=== PATIENT | male | born 1990 | race Caucasian/White ===

== ENCOUNTER 2019-09-16 11:40 | Emergency (ER) | payer SELFPAY ==
[2019-09-16] MEDS ORDERED: IBUPROFEN 400 MG TAB ONE (12:16)
[2019-09-16] MEDS ORDERED: IBUPROFEN 200 MG TAB PO ONE (12:16)
--- NOTE | 2019-09-16 12:24 | ER ---
Nurse's Notes [facility] Name: Carmelo Ruiz Age: 29 yrs Sex: Male : 1990 Arrival Date: 09/16/2019 Time: 11:42 Bed 20 Private MD: Diagnosis: Pain in right shoulder Presentation: 09/16 11:44 Presenting complaint: Left shoulder pain after lifting heavy materials at work 3 weeks hb ago. Seen by company doctor, told he has possible rotator cuff tear, unable to get insurance approval for MRI. Transition of care: patient was not received from another setting of care. Onset of symptoms was August 26, 2019. Risk Assessment: Do you want to hurt yourself or someone else? Patient reports no desire to harm self or others. Initial Sepsis Screen: Does the patient meet any 2 criteria? No. Patient's initial sepsis screen is negative. Does the patient have a suspected source of infection? No. Patient's initial sepsis screen is negative. Care prior to arrival: None. 11:44 Method Of Arrival: Ambulatory hb 11:44 Acuity: HANSEL 4 hb Historical: - Allergies: 11:46 No Known Allergies; hb - Home Meds: 11:46 None [Active]; hb - PMHx: 11:46 None; hb - PSHx: 11:46 Tonsillectomy; hb - Immunization history:: Adult Immunizations up to date. - Social history:: Smoking status: Patient/guardian denies using tobacco. - Ebola Screening: : No symptoms or risks identified at this time. - Family history:: not pertinent. Screenin:00 Abuse screen: Denies threats or abuse. Denies injuries from another. Nutritional jl7 screening: No deficits noted. Tuberculosis screening: No symptoms or risk factors identified. Fall Risk None identified. Assessment: 12:00 General: Appears in no apparent distress. uncomfortable, Behavior is cooperative. Pain: jl7 Complains of pain in right shoulder. Neuro: Level of Consciousness is awake, alert, obeys commands. Cardiovascular: Patient's skin is warm and dry. Respiratory: Airway is patent Respiratory effort is even, unlabored, Respiratory pattern is regular, symmetrical. Derm: Skin is pink, warm \\T\\ dry. Musculoskeletal: Swelling absent. 12:35 Reassessment: pt refused medication and sling, states "I just need an MRI so I can find jl7 out what is going on with my shoulder. It hurts and my company want send information so I can get an MRI." ERD notified and at bedside. MRI order wrote for outpatient. Pt left prior to discharge instructions and MRI order. Vital Signs: 11:46 BP 134 / 79; Pulse 102; Resp 16; Temp 97.3; Pulse Ox 100% on R/A; Weight 94.8 kg; hb Height 6 ft. (182.88 cm); Pain 7/10; 11:46 Body Mass Index 28.35 (94.80 kg, 182.88 cm) hb ED Course: 11:42 Patient arrived in ED. rg4 11:46 Triage completed. 11:46 Arm band placed on. 11:48 Branden Wong MD is Attending Physician. [facility] 11:59 Rosenda Geronimo, RN is Primary Nurse. jl7 12:00 Patient has correct armband on for positive identification. Bed in low position. Call jl7 light in reach. Side rails up X 1. 12:36 No provider procedures requiring assistance completed. IV discontinued. jl7 Administered Medications: 12:31 Not Given (Patient Refused): Motrin 600 mg PO once jl7 Outcome: 12:24 Discharge ordered by . [facility] 12:36 Eloped from patient exam room, after seeing physician Time discovered patient gone: jl7 September 16, 2019 at 12:34 12:37 Patient left the ED. jl7 Signatures: Branden Wong MD MD cha Baxter, Heather, RN RN Susan Vickers 4 Rosenda Geronimo, MARLO RN jl7
--- NOTE | 2019-09-16 12:25 | EDPHYS ---
Physician Documentation [facility] Name: Carmelo Ruiz Age: 29 yrs Sex: Male : 1990 Arrival Date: 09/16/2019 Time: 11:42 Bed 20 Private MD: ED Physician Branden Wong HPI: 09/16 12:09 This 29 yrs old Male presents to ER via Ambulatory with complaints of [place] Shoulder Pain. 12:09 The patient or guardian complains of decreased range of motion, pain. right shoulder. [place] Context: The patient experiences decreased range of motion. Onset: The symptoms/episode began/occurred just prior to arrival. Modifying factors: the symptoms are alleviated by ice, remaining still. Associated signs and symptoms: The patient has no apparent associated signs or symptoms. Severity of symptoms: At their worst the symptoms were moderate, in the emergency department the symptoms are unchanged. The patient has not experienced similar symptoms in the past. Historical: - Allergies: 11:46 No Known Allergies; hb - Home Meds: 11:46 None [Active]; hb - PMHx: 11:46 None; hb - PSHx: 11:46 Tonsillectomy; hb - Immunization history:: Adult Immunizations up to date. - Social history:: Smoking status: Patient/guardian denies using tobacco. - Ebola Screening: : No symptoms or risks identified at this time. - Family history:: not pertinent. ROS: 12:09 Constitutional: Negative for fever, chills, and weight loss, Eyes: Negative for injury, [place] pain, redness, and discharge, ENT: Negative for injury, pain, and discharge, Neck: Negative for injury, pain, and swelling, Cardiovascular: Negative for chest pain, palpitations, and edema, Respiratory: Negative for shortness of breath, cough, wheezing, and pleuritic chest pain, Abdomen/GI: Negative for abdominal pain, nausea, vomiting, diarrhea, and constipation, Back: Negative for injury and pain, : Negative for injury, bleeding, discharge, and swelling, Skin: Negative for injury, rash, and discoloration, Neuro: Negative for headache, weakness, numbness, tingling, and seizure, Psych: Negative for depression, anxiety, suicide ideation, homicidal ideation, and hallucinations, Allergy/Immunology: Negative for hives, rash, and allergies, Endocrine: Negative for neck swelling, polydipsia, polyuria, polyphagia, and marked weight changes, Hematologic/Lymphatic: Negative for swollen nodes, abnormal bleeding, and unusual bruising. 12:09 MS/extremity: Positive for decreased range of motion, pain, of the anterior aspect of right shoulder and posterior aspect of right shoulder. Exam: 12:09 Constitutional: This is a well developed, well nourished patient who is awake, alert, [place] and in no acute distress. Head/Face: Normocephalic, atraumatic. Eyes: Pupils equal round and reactive to light, extra-ocular motions intact. Lids and lashes normal. Conjunctiva and sclera are non-icteric and not injected. Cornea within normal limits. Periorbital areas with no swelling, redness, or edema. ENT: Nares patent. No nasal discharge, no septal abnormalities noted. Tympanic membranes are normal and external auditory canals are clear. Oropharynx with no redness, swelling, or masses, exudates, or evidence of obstruction, uvula midline. Mucous membranes moist. Neck: Trachea midline, no thyromegaly or masses palpated, and no cervical lymphadenopathy. Supple, full range of motion without nuchal rigidity, or vertebral point tenderness. No Meningismus. Chest/axilla: Normal chest wall appearance and motion. Nontender with no deformity. No lesions are appreciated. Cardiovascular: Regular rate and rhythm with a normal S1 and S2. No gallops, murmurs, or rubs. Normal PMI, no JVD. No pulse deficits. Respiratory: Lungs have equal breath sounds bilaterally, clear to auscultation and percussion. No rales, rhonchi or wheezes noted. No increased work of breathing, no retractions or nasal flaring. Abdomen/GI: Soft, non-tender, with normal bowel sounds. No distension or tympany. No guarding or rebound. No evidence of tenderness throughout. Back: No spinal tenderness. No costovertebral tenderness. Full range of motion. Skin: Warm, dry with normal turgor. Normal color with no rashes, no lesions, and no evidence of cellulitis. Neuro: Awake and alert, GCS 15, oriented to person, place, time, and situation. Cranial nerves II-XII grossly intact. Motor strength 5/5 in all extremities. Sensory grossly intact. Cerebellar exam normal. Normal gait. Psych: Awake, alert, with orientation to person, place and time. Behavior, mood, and affect are within normal limits. 12:09 Musculoskeletal/extremity: ROM: limited active range of motion, limited passive range of motion, Circulation is intact in all extremities. Sensation intact. Compartment Syndrome exam of affected extremity: is normal. DVT Exam: negative Homans' sign noted on exam, no appreciated bluish discoloration, no erythema, no increased warmth, swelling, tenderness. Vital Signs: 11:46 BP 134 / 79; Pulse 102; Resp 16; Temp 97.3; Pulse Ox 100% on R/A; Weight 94.8 kg; hb Height 6 ft. (182.88 cm); Pain 7/10; 11:46 Body Mass Index 28.35 (94.80 kg, 182.88 cm) hb MDM: 11:48 Patient medically screened. [facility] 12:11 Data reviewed: vital signs, nurses notes, radiologic studies, MRI. [facility] Administered Medications: 12:31 Not Given (Patient Refused): Motrin 600 mg PO once jl7 Disposition: 09/16/19 12:24 Discharged to Home. Impression: Pain in right shoulder. - Condition is Stable. - Discharge Instructions: Musculoskeletal Pain, Shoulder Pain, Shoulder Pain, [id number]. - Prescriptions for Ibuprofen 600 mg Oral Tablet - take 1 tablet by ORAL route every 6 hours As needed take with food; 26 tablet. Tylenol- Codeine #3 300-30 mg Oral Tablet - take 2 tablet by ORAL route every 6 hours As needed; 30 tablet. - Medication Reconciliation Form, Thank You Letter, Antibiotic Education, Prescription Opioid Use form. - Follow up: Private Physician; When: 2 - 3 days; Reason: Recheck today's complaints, Continuance of care, Re-evaluation by your physician. - Problem is new. - Symptoms have improved. Signatures: Branden Wong MD MD cha Baxter, Heather, RN RN Rosenda Geronimo RN RN jl7 Corrections: (The following items were deleted from the chart) 12:31 12:09 Sling ordered. [place] jl7 12:37 12:24 09/16/2019 12:24 Discharged to Home. Impression: Pain in right shoulder. jl7 Condition is Stable. Discharge Instructions: Musculoskeletal Pain, Shoulder Pain, Shoulder Pain, Jehn-ig-Bydo. Prescriptions for Ibuprofen 600 mg Oral Tablet - take 1 tablet by ORAL route every 6 hours As needed take with food; 26 tablet, Tylenol-Codeine #3 300-30 mg Oral Tablet - take 2 tablet by ORAL route every 6 hours As needed; 30 tablet. and Forms are Medication Reconciliation Form, Thank You Letter, Antibiotic Education, Prescription Opioid Use. Follow up: Private Physician; When: 2 - 3 days; Reason: Recheck today's complaints, Continuance of care, Re-evaluation by your physician. Problem is new. Symptoms have improved. [place]
[2019-09-16 19:41] VITALS: BP 134/79; TEMP 97.3; O2SAT 100
== END 2019-09-16 12:37 | disposition home or self-care (01) ==
LOC: ER 11:40
DX: M25.511 Pain in right shoulder (principal)
CPT/HCPCS: 99281

== ENCOUNTER 2020-08-22 21:28 | Inpatient (IN) | payer SELFPAY ==
[2020-08-22 22:04] LABS: Absolute Lymphocytes (CBC) 0.8 K/uL (0.7-4.9); Basophils % 0.7 % (0-1.3); Hematocrit 38.9 % (39.6-49.0); Lymphocytes % 18.9 % (15.3-44.8); MPV 8.4 fL (7.6-11.3); RBC Red Blood Cell Count 4.64 M/uL (4.33-5.43)
[2020-08-22] MEDS ORDERED: ONDANSETRON 4 MG/2 ML VIAL ONE ×2 (22:17→22:57)
[2020-08-22] MEDS ORDERED: NA CHLORIDE 0.9% 1,000 ML ONE ×2 (22:17→22:57)
[2020-08-22 22:23] LABS: Albumin 3.3 g/dL (3.4-5.0); Bilirubin Direct 5.4 mg/dL (0-0.2); Potassium 3.7 mmol/L (3.5-5.1); Protein, Total 7.6 g/dL (6.4-8.2)
[2020-08-22 22:25] LABS: Bilirubin Total 6.9 mg/dL (0.2-1.0)
[2020-08-22 23:05] LABS: Urine Blood 2+ (NEG); Urine Glucose NEGATIVE (NEG); Urine Protein 1+ (NEG); Urine pH 5.5 (5.0-7.0)
[2020-08-22 23:36] LABS: Urine Bacteria 20-50 /HPF (NONE SEEN); Urine Culture Reflex Order REFLEXED; Urine Mucus 1+ /HPF (NONE SEEN)
[2020-08-22 23:38] LABS: Protime INR 1.16
[2020-08-23] MEDS ORDERED: CEFTRIAXONE/SWI 1gm 1 GM/10 ML SYR ONE (00:04)
--- NOTE | 2020-08-23 00:17 | EDPHYS ---
Physician Documentation [facility] Name: Carmelo Ruiz Age: 30 yrs Sex: Male : 1990 Arrival Date: 08/22/2020 Time: 21:32 Bed 6 Private MD: ED Physician Branden Wong HPI: 08/22 21:55 This 30 yrs old Male presents to ER via Ambulatory with complaints of cp Vomiting, Fever. 21:55 The patient presents to the emergency department with nausea, that is moderate, cp vomiting, that is intermittent. 21:55 Onset: The symptoms/episode began/occurred 3 day(s) ago. Possible causes: unknown. cp Associated signs and symptoms: Pertinent positives: anorexia, fever, Pertinent negatives: abdominal pain, constipation, diarrhea, dysuria, GI bleeding. Severity of symptoms: in the emergency department the symptoms are unchanged despite home interventions. 21:55 Patient reports having negative COVID test done at [facility] yesterday. cp Historical: - Allergies: 21:44 No Known Allergies; ll1 - PSHx: 21:44 Tonsillectomy; ll1 - Immunization history:: Flu vaccine is not up to date. - Social history:: Smoking status: Patient denies any tobacco usage or history of. ROS: 22:00 Constitutional: Positive for body aches, fever, poor PO intake. cp 22:00 Eyes: Negative for injury, pain, redness, and discharge. cp 22:00 ENT: Negative for drainage from ear(s), ear pain, sore throat, difficulty swallowing, difficulty handling secretions. 22:00 Cardiovascular: Negative for chest pain, edema, palpitations. 22:00 Respiratory: Negative for cough, wheezing. 22:00 Abdomen/GI: Positive for nausea and vomiting, anorexia, Negative for abdominal pain, diarrhea, constipation, black/tarry stool, rectal bleeding. 22:00 Back: Negative for radiated pain. 22:00 Skin: Negative for rash. 22:00 Neuro: Positive for headache, Negative for altered mental status, dizziness. 22:00 All other systems are negative. Exam: 22:05 Constitutional: The patient appears in no acute distress, alert, awake, non-toxic, well cp developed, well nourished. 22:05 Head/Face: Normocephalic, atraumatic. cp 22:05 Eyes: Periorbital structures: appear normal, Conjunctiva: normal, no exudate, no injection, Sclera: no appreciated abnormality, Lids and lashes: appear normal, bilaterally. 22:05 ENT: External ear(s): are unremarkable, Nose: is normal, Posterior pharynx: Airway: no evidence of obstruction, patent. 22:05 Neck: ROM/movement: is normal, is supple, no meningismus, no nuchal rigidity. 22:05 Chest/axilla: Inspection: normal, Palpation: is normal, no crepitus, no tenderness. 22:05 Cardiovascular: Rate: normal, Rhythm: regular. 22:05 Respiratory: the patient does not display signs of respiratory distress, Respirations: normal, no use of accessory muscles, no retractions, labored breathing, is not present, Breath sounds: are clear throughout, no decreased breath sounds. 22:05 Abdomen/GI: Inspection: abdomen appears normal, Bowel sounds: active, all quadrants, Palpation: abdomen is soft and non-tender, in all quadrants. 22:05 Back: pain, is absent, ROM is normal. 22:05 Skin: no rash present. 22:05 Neuro: Orientation: to person, place \T\ time. Mentation: is normal, Motor: moves all fours, strength is normal. Vital Signs: 21:41 BP 110 / 71; Pulse 93; Resp 18; Temp 99.0; Pulse Ox 99% on R/A; ll1 21:47 Weight 95.25 kg; Height 6 ft. 0 in. (182.88 cm); Pain 5/10; ll1 23:07 BP 127 / 81; Pulse 90; Resp 18; Pulse Ox 100% on R/A; mg2 08/23 00:45 BP 124 / 71; Pulse 104; Resp 18; Pulse Ox 97% on R/A; rv 01:48 BP 105 / 61; Pulse 92; Resp 18; Pulse Ox 96% on R/A; mg2 02:13 BP 111 / 65; Pulse 88; Resp 18; Pulse Ox 96% on R/A; mg2 08/22 21:47 Body Mass Index 28.48 (95.25 kg, 182.88 cm) ll1 MDM: 08/22 21:39 Patient medically screened. [place] 22:00 Differential diagnosis: gastritis, cholecystitis, pancreatitis, viral gastroenteritis, cp gastroenteritis. 08/23 00:15 Data reviewed: vital signs, nurses notes, lab test result(s), radiologic studies, cp ultrasound. 00:15 Counseling: I had a detailed discussion with the patient and/or guardian regarding: the cp historical points, exam findings, and any diagnostic results supporting the discharge/admit diagnosis, lab results, radiology results, the need for further work-up and treatment in the hospital. Response to treatment: the patient's symptoms have mildly improved after treatment, and as a result, I will admit patient. 00:15 Physician consultation: Prince Amber BORJAS was contacted at 00:15, regarding admission, cp to the medical/surgical unit. patient's condition. 08/22 21:50 Order name: Basic Metabolic Panel; Complete Time: 22:36 mg2 08/22 22:36 Interpretation: Normal except: GLUC 108; GFR 67. cp 08/22 21:50 Order name: CBC with Diff; Complete Time: 22:36 mg2 08/22 22:40 Interpretation: Normal except: HCT 38.9; PLT 128; MN% 13.6. cp 08/22 21:50 Order name: Hepatic Function; Complete Time: 22:36 mg2 08/22 22:41 Interpretation: Normal except: AST 117; ALT 175; ALK 154; BILIT 6.9; BILID 5.4; ALB cp 3.3; GLOB 4.3; A/G 0.8. 08/22 21:50 Order name: Lipase; Complete Time: 22:36 mg2 08/22 22:01 Order name: Influenza Screen (a \T\ B); Complete Time: 23:02 cp 08/22 22:01 Order name: Strep; Complete Time: 23:02 cp 08/22 22:01 Order name: [place] Screen Profile; Complete Time: 22:36 cp 08/22 22:01 Order name: Urine Microscopic Only; Complete Time: 23:48 cp 08/22 23:48 Interpretation: Normal except: URBC 5-10; UBACT 20-50. cp 08/22 22:43 Order name: Throat Culture EDMS 08/22 23:00 Order name: Urine Dipstick--Ancillary (enter results); Complete Time: 23:10 mw2 08/22 23:52 Interpretation: Normal except: UBLD 2+; UPROT 1+. cp 08/22 23:03 Order name: Tylenol Level; Complete Time: 00:00 cp 08/22 23:03 Order name: ETOH Level; Complete Time: 23:48 cp 08/22 23:03 Order name: PT-INR; Complete Time: 23:48 cp 08/22 23:03 Order name: Ptt, Activated; Complete Time: 23:48 cp 08/22 22:37 Order name: US Abdomen Limited cp 08/22 23:03 Order name: AMMONIA; Complete Time: 23:54 cp 08/22 23:11 Order name: Hepatitis Panel [facility] 08/22 23:13 Order name: Lactate; Complete Time: 00:00 cp 08/22 23:13 Order name: Hepatitis Panel cp 08/22 23:13 Order name: Blood Culture Adult (2) cp 08/22 23:37 Order name: Urine Culture [facility] 08/23 00:08 Order name: CT Abd/Pelvis - IV Contrast Only 08/23 00:13 Order name: XRAY Chest (1 view) 08/23 01:47 Order name: SARS-COV-2 RT PCR [facility] 08/23 02:30 Order name: Gamma Glutamyl Transpeptidase [facility] 08/23 02:30 Order name: HIV (1 [facility] 08/22 21:50 Order name: IV Saline Lock; Complete Time: 21:50 mg2 08/22 21:50 Order name: Labs collected and sent; Complete Time: 21:50 mg2 08/22 22:01 Order name: Urine Dipstick-Ancillary (obtain specimen); Complete Time: 23:06 cp Administered Medications: 08/22 22:10 Drug: NS 0.9% 1000 ml Route: IV; Rate: 1 bolus; Site: right antecubital; mg2 23:47 Follow up: Response: No adverse reaction; IV Status: Completed infusion; IV Intake: mg2 1000ml 22:10 Drug: Zofran (Ondansetron) 4 mg Route: IVP; Site: right antecubital; mg2 23:46 Follow up: Response: No adverse reaction mg2 23:00 Drug: Zofran (Ondansetron) 4 mg Route: IVP; Site: right antecubital; mg2 23:46 Follow up: Response: No adverse reaction; Nausea is decreased mg2 23:06 Drug: NS 0.9% 1000 ml Route: IV; Rate: 1 bolus; Site: right antecubital; mg2 23:46 Follow up: Response: No adverse reaction; IV Status: Completed infusion; IV Intake: mg2 1000ml 23:50 Drug: Rocephin - (cefTRIAXone) 1 grams Route: IVPB; Infused Over: 30 mins; Site: right mg2 antecubital; 08/23 00:58 Follow up: Response: No adverse reaction; IV Status: Completed infusion mg2 Disposition: 06:45 Co-signature as Attending Physician, Branden Wong MD I agree with the assessment and [facility] plan of care. Disposition: 08/23/20 00:16 Hospitalization ordered by Prince Amber for Inpatient Admission. Preliminary diagnosis are Nausea and vomiting, Abnormal results of liver function studies, Dehydration, Urinary tract infection, site not specified. - Bed requested for Telemetry/MedSurg (Inpatient). - Status is Inpatient Admission. mg2 - Condition is Fair. - Problem is new. - Symptoms have improved. Signatures: Dispatcher [employer] [facility] Branden Wong MD MD cha Page, Corey, PA PA cp Angelica Masters mw2 Sanya Bassett RN RN mg2 Louis Norris RN RN ll1 Corrections: (The following items were deleted from the chart) 08/22 22:41 22:41 Normal except: AST 117; ALT 175; ALK 154; BILIT 6.9; BILID 5.4; ALB 3.3; GLOB cp 4.3. cp 08/23 00:41 00:17 CORONAVIRUS+.EMERY ordered. [facility] 01:52 00:16 Hospitalization Ordered by Prince Amber BORJAS for Inpatient Admission. Preliminary mw2 diagnosis is Nausea and vomiting; Abnormal results of liver function studies; Dehydration. Bed requested for Telemetry/MedSurg (Inpatient). Status is Inpatient Admission. Condition is Fair. Problem is new. Symptoms have improved. cp 02:44 01:52 08/23/2020 00:16 Hospitalization Ordered by Prince Amber BORJAS for Inpatient [place] Admission. Preliminary diagnosis is Nausea and vomiting; Abnormal results of liver function studies; Dehydration. Bed requested for Telemetry/MedSurg (Inpatient). Status is Inpatient Admission. Condition is Fair. Problem is new. Symptoms have improved. mw2 02:48 02:44 08/23/2020 00:16 Hospitalization Ordered by Prince Amber BORJAS for Inpatient mg2 Admission. Preliminary diagnosis is Nausea and vomiting; Abnormal results of liver function studies; Dehydration; Urinary tract infection, site not specified. Bed requested for Telemetry/MedSurg (Inpatient). Status is Inpatient Admission. Condition is Fair. Problem is new. Symptoms have improved. [place]
--- NOTE | 2020-08-23 00:17 | ER ---
Nurse's Notes [facility] Name: Carmelo Ruiz Age: 30 yrs Sex: Male : 1990 Arrival Date: 08/22/2020 Time: 21:32 Bed 6 Private MD: Diagnosis: Nausea and vomiting;Abnormal results of liver function studies;Dehydration;Urinary tract infection, site not specified Presentation: 08/22 21:41 Chief complaint: Patient states: Chills, SOB, fever, N/V, body aches, fatigue, dizzy, ll1 no appetite since night. Fever 99-103 at home. Covid test Monday was negative. Coronavirus screen: Client denies travel out of the [place] in the last 14 days. difficulty breathing, fatigue, fever, muscle pain, nausea, shaking with chills, vomiting. Client presents with at least one sign or symptom that may indicate coronavirus-19. The client reports previous COVID testing was negative. Ebola Screen: Patient denies travel to an Ebola-affected area in the 21 days before illness onset. Initial Sepsis Screen: Does the patient meet any 2 criteria? HR > 90 bpm. No. Patient's initial sepsis screen is negative. Does the patient have a suspected source of infection? Yes: Other: fever, N/V. Risk Assessment: Do you want to hurt yourself or someone else? Patient reports no desire to harm self or others. Onset of symptoms was August 20, 2020. 21:41 Method Of Arrival: Ambulatory ll1 21:41 Acuity: HANSEL 3 ll1 Historical: - Allergies: 21:44 No Known Allergies; ll1 - PSHx: 21:44 Tonsillectomy; ll1 - Immunization history:: Flu vaccine is not up to date. - Social history:: Smoking status: Patient denies any tobacco usage or history of. Screenin:52 Abuse screen: Denies threats or abuse. Denies injuries from another. Nutritional mg2 screening: No deficits noted. Tuberculosis screening: No symptoms or risk factors identified. Fall Risk IV access (20 points). Assessment: 21:50 General: Appears in no apparent distress. comfortable, Behavior is calm, cooperative. mg2 Pain: Denies pain. Neuro: Level of Consciousness is awake, alert, obeys commands, Oriented to person, place, time, situation. Cardiovascular: Capillary refill < 3 seconds Patient's skin is warm and dry. Respiratory: Airway is patent Respiratory effort is even, unlabored, Respiratory pattern is regular, symmetrical. GI: Abdomen is non-distended, Reports nausea, vomiting. EENT: Eyes yellowish . Musculoskeletal: Circulation, motion, and sensation intact. Capillary refill < 3 seconds. 08/23 00:45 Reassessment: Patient appears in no apparent distress at this time. Patient and/or mg2 family updated on plan of care and expected duration. Pain level reassessed. seen by hospitalist. 01:48 Reassessment: Patient appears in no apparent distress at this time. Patient and/or mg2 family updated on plan of care and expected duration. Pain level reassessed. Vital Signs: 08/22 21:41 BP 110 / 71; Pulse 93; Resp 18; Temp 99.0; Pulse Ox 99% on R/A; ll1 21:47 Weight 95.25 kg; Height 6 ft. 0 in. (182.88 cm); Pain 5/10; ll1 23:07 BP 127 / 81; Pulse 90; Resp 18; Pulse Ox 100% on R/A; mg2 08/23 00:45 BP 124 / 71; Pulse 104; Resp 18; Pulse Ox 97% on R/A; rv 01:48 BP 105 / 61; Pulse 92; Resp 18; Pulse Ox 96% on R/A; mg2 02:13 BP 111 / 65; Pulse 88; Resp 18; Pulse Ox 96% on R/A; mg2 08/22 21:47 Body Mass Index 28.48 (95.25 kg, 182.88 cm) ll1 ED Course: 08/22 21:32 Patient arrived in ED. ag3 21:35 Sanya Bassett, MARLO is Primary Nurse. mg2 21:37 Branden Williamson PA is PHCP. cp 21:38 Branden Wong MD is Attending Physician. cp 21:44 Triage completed. ll1 21:44 Arm band placed on Patient placed in an exam room, on a stretcher. ll1 21:52 Patient has correct armband on for positive identification. Door closed. Warm blanket mg2 given. 21:52 No provider procedures requiring assistance completed. Inserted saline lock: 20 gauge mg2 in right antecubital area, using aseptic technique. Blood collected. 23:12 Ultrasound completed. Patient tolerated well. Notified ED Physician page. sg3 23:14 US Abdomen Limited In Process Unspecified. EDMS 08/23 00:15 Prince Clark MD is Hospitalizing Provider. cp 01:04 XRAY Chest (1 view) In Process Unspecified. EDMS 01:19 CT Abd/Pelvis - IV Contrast Only In Process Unspecified. EDMS 02:12 Patient admitted, IV remains in place. mg2 Administered Medications: 08/22 22:10 Drug: NS 0.9% 1000 ml Route: IV; Rate: 1 bolus; Site: right antecubital; mg2 23:47 Follow up: Response: No adverse reaction; IV Status: Completed infusion; IV Intake: mg2 1000ml 22:10 Drug: Zofran (Ondansetron) 4 mg Route: IVP; Site: right antecubital; mg2 23:46 Follow up: Response: No adverse reaction mg2 23:00 Drug: Zofran (Ondansetron) 4 mg Route: IVP; Site: right antecubital; mg2 23:46 Follow up: Response: No adverse reaction; Nausea is decreased mg2 23:06 Drug: NS 0.9% 1000 ml Route: IV; Rate: 1 bolus; Site: right antecubital; mg2 23:46 Follow up: Response: No adverse reaction; IV Status: Completed infusion; IV Intake: mg2 1000ml 23:50 Drug: Rocephin - (cefTRIAXone) 1 grams Route: IVPB; Infused Over: 30 mins; Site: right mg2 antecubital; 08/23 00:58 Follow up: Response: No adverse reaction; IV Status: Completed infusion mg2 Intake: 08/22 23:46 IV: 1000ml; Total: 1000ml. mg2 23:47 IV: 1000ml; Total: 2000ml. mg2 Outcome: 08/23 00:16 Decision to Hospitalize by Provider. cp 02:12 Admitted to Med/surg accompanied by nurse, via wheelchair, room 203, with chart, Report mg2 called to MARLO Ivy 02:12 Condition: stable 02:12 Instructed on the need for admit, Demonstrated understanding of instructions. 02:48 Patient left the ED. mg2 Signatures: Dispatcher [employer] EDMS Branden Williamson PA PA cp Beverly Schafer sg3 Sanya Bassett RN RN mg2 Nathan Ritter RN RN rv Della Chaves3 Louis Norris RN RN ll1 Corrections: (The following items were deleted from the chart) 01:49 00:45 Reassessment: Patient appears in no apparent distress at this time. Patient mg2 and/or family updated on plan of care and expected duration. Pain level reassessed. Patient is alert, oriented x 3, equal unlabored respirations, skin warm/dry/pink. seen by hospitalist mg2 01:50 01:48 Pulse 92bpm; Resp 18bpm; Pulse Ox 96% RA; mg2 mg2
--- NOTE | 2020-08-23 00:38 | P.HP ---
Certification for Inpatient Patient admitted to: Inpatient With expected LOS: >2 Midnights Practitioner: I am a practitioner with admitting privileges, knowledge of patient current condition, hospital course, and medical plan of care. Services: Services provided to patient in accordance with Admission requirements found in Title 42 Section 412.3 of the Code of Federal Regulations Patient History Date of Service: 08/23/20 Reason for admission: fever History of Present Illness: Ranjit is a 30-year-old male without past medical history who presented the ER complaining of a five-day history of fever, chills, headache. His symptoms were intermittent in nature and were alleviated after induced sweating. Associated symptoms include nausea vomiting and poor oral intake. He is not able to keep anything down due to nausea and vomiting. He is also having some diarrhea. Over the course of this period, he has had approximately 5 episodes of nonbloody diarrhea. Patient was checked at [facility] for COVID 19 and was negative. Allergies No Known Allergies Allergy (Unverified 11/23/17 11:07) Physical Examination - Physical Exam General: Cooperative, Moderate distress, Other (lethargic) HEENT: Atraumatic, Normocephalic, EOMI, Scleral icterus Neck: Supple Respiratory: Clear to auscultation bilaterally, Normal air movement Cardiovascular: No edema, Normal pulses, Regular rate/rhythm, Normal S1 S2 Gastrointestinal: Normal bowel sounds, No tenderness, Distended Musculoskeletal: No clubbing, No swelling, No contractures, No erythema, No tenderness Integumentary: Warmth Neurological: Normal speech, Sensation intact, Normal affect - Studies Laboratory Data (last 24 hrs) 08/22/20 23:15: PT 13.7 H, INR 1.16, APTT 36.5 08/22/20 21:45: WBC 4.3, Hgb 13.7, Hct 38.9 L, Plt Count 128 L 08/22/20 21:45: Sodium 136, Potassium 3.7, BUN 13, Creatinine 1.25, Glucose 108 H, Total Bilirubin 6.9 H*, AST 117 H, ALT 175 H, Alkaline Phosphatase 154 H, Lipase 144 Microbiology Data (last 24 hrs): 08/22/20 22:05 Throat Group A Streptococcus Rapid Screen - Final 08/22/20 22:05 Nasopharnyx Influenza Type A Antigen Screen - Final 08/22/20 22:05 Nasopharnyx Influenza Type B Antigen Screen - Final Assessment and Plan - Problems (Diagnosis) (1) Transaminasemia Current Visit: Yes Status: Acute (2) SIRS due to infectious process with organ dysfunction Current Visit: Yes Status: Acute - Advance Directives Does patient have a Living Will: No Does patient have a Durable POA for Healthcare: No Physician Review Additional Text: Assessment Patient is a 30 year old male admitted with a constellation of symptoms include fever, rigors, nausea and vomiting. Found to have direct hyp erbilirubinemia with a TBil ~7. He has mild signs of obstructive jaundice. Differential include acute cholangitis, gastroenteritis or bacteremia of unknown source. Abdominal ultrasound was done but formal read is pending. Severe sepsis Possible GI infection Possible UTI Transaminesemia Conjugated hyperbilirubinemia PLAN: Admit inpatient Sepsis work up underway with blood and urine cultures pending CT abdomen and pelvis Patient will need a MRCP if above imaging cannot explain presentation, or go straight with ERCP. These procedures will wait until Monday since NOT performed on the weekends Nevertheless, he will need a GI consult if no improvement in the next 24 hours Follow up hepatitis panel, HIV Start empiric antibiotics with gram negative and anaerobic coverage Start IVF infusion
[2020-08-23] MEDS ORDERED: PIPER/TAZO/NS 3.375gm 3.375 GM/100 ML BAG IVPB SCH (02:30)
[2020-08-23] MEDS ORDERED: ONDANSETRON 4 MG/2 ML VIAL IV PRN ×2 (02:30→03:01)
[2020-08-23] MEDS ORDERED: NA CHLORIDE 0.9% 1,000 ML IV SCH (02:30)
[2020-08-23] MEDS ORDERED: PIPER/TAZO/NS 3.375gm 3.375 GM/100 ML BAG ONE (02:30)
[2020-08-23] MEDS: NA CHLORIDE 0.9% 1,000 ML IV SCH ×4 (03:48→22:04)
[2020-08-23] MEDS: PIPER/TAZO/NS 3.375gm 3.375 GM/100 ML BAG IVPB SCH ×3 (03:48→16:03)
[2020-08-23] MEDS: ACETAMINOPHEN 500 MG TAB PO PRN ×2 (04:46→14:19)
--- NOTE | 2020-08-23 09:30 | RAD REPORT ---
EXAM DESCRIPTION: RAD - Chest Single View - 08/23/2020 1:04 am CLINICAL HISTORY: FEVER COMPARISON: None TECHNIQUE: AP portable chest image was obtained 08/23/2020 1:04 am . FINDINGS: Lungs are clear. Heart and vasculature are normal. No measurable pleural effusion and no p neumothorax. No acute bony abnormality seen. No acute aortic findings suspected. IMPRESSION: No acute cardiopulmonary process.
[2020-08-23] MEDS ORDERED: HYDROCODONE/APAP 5/325 MG TAB PO ONE (09:55)
[2020-08-23] MEDS ORDERED: INFLUENZA VACCINE (for 3y+) 0.5 ML DOSE IMVAC ONE (10:00)
--- NOTE | 2020-08-23 10:33 | P.PN ---
Date of Service: 08/23/20 Patient complaining of headache. He denies any abdominal pain. UA noted to suggest the presence of UTI. CT abdomen suggest bilateral perinephric stranding suggesting pyelonephritis. It also reports fatty liver which could explain his hyperbilirubinemia. Acuity is unknown. Plan: Continue IV Zosyn. Supportive measures. Follow cultures. GI consult tomorrow.
[2020-08-23] MEDS: OXYCODONE HCL 5 MG TAB PO PRN ×2 (16:25→22:02)
[2020-08-24] MEDS: PIPER/TAZO/NS 3.375gm 3.375 GM/100 ML BAG IVPB SCH ×3 (01:20→16:38)
[2020-08-24] MEDS: NA CHLORIDE 0.9% 1,000 ML IV SCH ×3 (03:00→19:46)
[2020-08-24 07:32] LABS: Absolute Lymphocytes (CBC) 1.3 K/uL (0.7-4.9); Basophils % 0.4 % (0-1.3); Hematocrit 31.6 % (39.6-49.0); Lymphocytes % 27.9 % (15.3-44.8); MPV 8.3 fL (7.6-11.3); RBC Red Blood Cell Count 3.73 M/uL (4.33-5.43)
[2020-08-24 08:20] VITALS: O2SAT 96
--- NOTE | 2020-08-24 09:46 | P.PN ---
Subjective Date of Service: 08/24/20 Chief Complaint: fever Subjective: No new changes Patient was complaining of headache yesterday. He states his headache has significantly improved today. He is afebrile, denies any abdominal pain. Physical Examination - Vital Signs Temperature: 98.7 F Blood Pressure: 124/80 Pulse: 62 Respirations: 20 Pulse Ox (%): 96 - Physical Exam General: Alert, In no apparent distress HEENT: PERRLA, Mucous membr. moist/pink, Scleral icterus Neck: Supple, JVD not distended Respiratory: Clear to auscultation bilaterally, Normal air movement Cardiovascular: No edema, Regular rate/rhythm, Normal S1 S2 Capillary refill: <2 Seconds Gastrointestinal: Normal bowel sounds, Soft and benign, Non-distended, No tenderness Musculoskeletal: No swelling, No erythema Integumentary: No rashes, No tenderness/swelling Neurological: Other (Nonfocal.) - Studies Microbiology Data (last 24 hrs): 08/22/20 22:50 Clean Catch Urine [place] Count - Final No growth. 08/22/20 22:50 Clean Catch Urine - Final No growth. Assessment And Plan - Current Problems (Diagnosis) (1) Hyperbilirubinemia Current Visit: Yes Status: Acute (2) SIRS due to infectious process with organ dysfunction Current Visit: Yes Status: Acute (3) Transaminasemia Current Visit: Yes Status: Acute - Plan Continue supportive measures with IV hydration. Given that the patient experienced fever, he is empirically treated with IV Zosyn to cover for acute cholangitis. GI consulted to evaluate and assist with management. Monitor LFT. Hepatitis profile is pending Feeding as tolerated.
[2020-08-24 10:22] LABS: Protime INR 1.03
[2020-08-24 10:46] LABS: Albumin 2.5 g/dL (3.4-5.0); Bilirubin Direct 1.9 mg/dL (0-0.2); Bilirubin Total 2.8 mg/dL (0.2-1.0); Ferritin 460.2 ng/mL (26-388); Protein, Total 6.2 g/dL (6.4-8.2)
--- NOTE | 2020-08-24 12:42 | RAD REPORT ---
EXAM DESCRIPTION: US - Abdomen Exam Limited - 08/22/2020 11:14 pm CLINICAL HISTORY: The patient is 30 years old and is Male; elevated liver enzymes TECHNIQUE: Real-time ultrasound of the right upper quadrant with image documentation. COMPARISON: No relevant prior studies available. FINDINGS: GALLBLADDER: Unremarkable. No gallstones. COMMON BILE DUCT: Unremarkable as visualized. No stones. No dilation. IMPRESSION: Unremarkable gallbladder ultrasound. Electronically signed by: Carmen Vines MD 08/23/2020 1:39 AM CDT Due to temporary technical issues with the PACS/Fluency reporting system, reports are being signed by the in house radiologist without review as a courtesy to ensure prompt reporting. The interpreting r adiologist is fully responsible for the content of the report.
--- NOTE | 2020-08-24 12:48 | RAD REPORT ---
EXAM DESCRIPTION: CT - Abdomen Pelvis W Contrast - 08/23/2020 6:58 am CLINICAL HISTORY: The patient is 30 years old and is Male; elevated liver enzymes, N/V TECHNIQUE: Axial computed tomography images of the abdomen and pelvis with intravenous contrast. S agittal and coronal reformatted images were created and reviewed. This CT exam was performed using one or more of the following dose reduction techniques: automated exposure control, adjustment of t he mA and/or kV according to patient size, and/or use of iterative reconstruction technique. COMPARISON: No relevant prior studies available. FINDINGS: LUNG BASES: Unremarkable. No mass. No consolidation. ABDOMEN: LIVER: The liver is enlarged and diffusely fatty. GALLBLADDER AND BILE DUCTS: No calcified stones. No ductal dilation. PANCREAS: No ductal dilation. No mass. SPLEEN: The spleen is prominent. Splenic granuloma are present. ADRENALS: Unremarkable. No mass. KIDNEYS AND URETERS: Bilateral perinephric stranding is present. The kidneys enhance symmetrical ly. There is no hydronephrosis or hydroureter of either kidney. No obstructing renal or ureteral calc ulus is seen. STOMACH AND BOWEL: The stomach is decompressed. The small bowel is normal in caliber. Stool is p resent throughout colon. There is no mucosal thickening or evidence of bowel obstruction. PELVIS: APPENDIX: The appendix is normal in caliber without surrounding inflammation. BLADDER: The bladder is nearly empty. REPRODUCTIVE: Unremarkable as visualized. ABDOMEN and PELVIS: INTRAPERITONEAL SPACE: Unremarkable. No free air. No significant fluid collection. BONES/JOINTS: No acute fracture. SOFT TISSUES: The soft tissues are normal. VASCULATURE: Unremarkable. No abdominal aortic aneurysm. LYMPH NODES: Unremarkable. No enlarged lymph nodes. IMPRESSION: 1. Hepatic steatosis with mild hepatosplenomegaly. 2. Bilateral nonspecific perinephric stranding. Findings may be secondary to an underlying mild inf ectious process. Electronically signed by: Carmen Vines MD 08/23/2020 1:38 AM CDT Due to temporary technical issues with the PACS/Fluency reporting system, reports are being signed by the in house radiologist without review as a courtesy to ensure prompt reporting. The interpreting r adiologist is fully responsible for the content of the report.
--- NOTE | 2020-08-24 16:55 | RAD REPORT ---
EXAM DESCRIPTION: MRI - Cholangiogram - 08/24/2020 4:33 pm CLINICAL HISTORY: Abdominal pain, abnormal liver function COMPARISON: CT study August 23 TECHNIQUE: Axial and coronal heavily T2 weighted sequences were obtained. Coronal T2 HASTE fat satur ation static and coronal multiplane reconstruction imaging generated and reviewed. Horizontal and himanshu tical axis rotational views obtained using maximum intensity projection (MIP) protocol. FINDINGS: Distended but nondilated gallbladder is seen with no intraluminal filling defects identifi able. No edema or wall thickening the gallbladder evident. Common bile duct is normal in diameter. No stone, stricture or mass identifiable. No intrahepatic dil atation identified. Small pancreatic duct is identifiable. . IMPRESSION: Unremarkable MRCP.
[2020-08-25] MEDS: PIPER/TAZO/NS 3.375gm 3.375 GM/100 ML BAG IVPB SCH ×2 (00:33→07:48)
[2020-08-25 00:42] LABS: Albumin 2.7 g/dL (3.4-5.0); Protein, Total 6.7 g/dL (6.4-8.2)
[2020-08-25] MEDS: NA CHLORIDE 0.9% 1,000 ML IV SCH ×2 (03:48→11:59)
[2020-08-25 04:33] LABS: Absolute Lymphocytes (CBC) 1.6 K/uL (0.7-4.9); Basophils % 0.5 % (0-1.3); Hematocrit 33.6 % (39.6-49.0); Lymphocytes % 31.4 % (15.3-44.8); MPV 8.7 fL (7.6-11.3); RBC Red Blood Cell Count 3.96 M/uL (4.33-5.43)
[2020-08-25 08:50] VITALS: BP 110/67; TEMP 97.2
--- NOTE | 2020-08-25 11:54 | P.PN ---
Subjective Date of Service: 08/25/20 Chief Complaint: fever Subjective: Improving (able to tolerate GI soft diet last night, feeling better denies abdominal pain, nausea/vomiting. +soft BM yesterday) Review of Systems 10-point ROS is otherwise unremarkable Physical Examination - Vital Signs Temperature: 97.2 F Blood Pressure: 110/67 Pulse: 60 Respirations: 18 Pulse Ox (%): 98 - Physical Exam General: Alert, In no apparent distress HEENT: Sclerae nonicteric Neck: Supple Respiratory: Clear to auscultation bilaterally Cardiovascular: Regular rate/rhythm, Normal S1 S2 Gastrointestinal: Soft and benign, Non-distended, No tenderness Musculoskeletal: No erythema, No tenderness Neurological: Normal speech, Normal affect - Studies Microbiology Data (last 24 hrs): 08/22/20 22:05 Throat Culture & Sensitivity - Final NORMAL UPPER RESPIRATORY MIRNA GROWN. 08/22/20 22:50 Clean Catch Urine [place] Count - Final No growth. 08/22/20 22:50 Clean Catch Urine - Final No growth. Assessment & Plan Physician Review Additional Text: severe sepsis, unknown source Possible GI infection Transaminesemia Conjugated hyperbilirubinemia Sepsis workup has been negative thus far, blood and urine cultures without growth x 24hrs clinically patient seems to be improving CT abdomen and pelvis - nonspecific perinephric stranding, hepatic steatosis with hepatomegaly MRCP negative LFTs very slowly improving, total bilirubin significantly improved GI consulted Follow up hepatitis panel - patient reports no risk factors tolerating GI soft diet, dc IVF Dispo: Anticipate dc home in 24-48hrs Time Spent Managing Pts Care (In Minutes): 35
--- NOTE | 2020-08-25 14:12 | P.DS ---
Admission Date: 08/23/20 Discharge Date: 08/25/20 Disposition: ROUTINE DISCHARGE Discharge Condition: GOOD Reason for Admission: fever, abdominal pain, elevated LFTs Consultations: GI - Dr. Thompson Procedures: Abdominal ultrasound (08/24): Unremarkable gallbladder ultrasound CT abdomen/pelvis (08/23): 1. Hepatic steatosis with mild hepatosplenomegaly. 2. Bilateral nonspecific perinephric stranding. Findings may be secondary to an underlying mild infectious process. MRCP (08/24): Unremarkable at MRCP. Distended but non dilated gallbladder is seen with no intraluminal filling defects identifiable. No edema or wall thickening of the gallbladder is evident. Problem list severe sepsis, unknown source, possible GI infection Transaminesemia Conjugated hyperbilirubinemia Brief History of Present Illness: 30-year-old male without past medical history who presented the ER complaining of a five-day history of fever, chills, headache. His symptoms were intermittent in nature and were alleviated after induced sweating. Associated symptoms include nausea vomiting and poor oral intake. He is not able to keep anything down due to nausea and vomiting. He is also having some diarrhea. Over the course of this period he has had approximately 5 episodes of nonbloody diarrhea. Patient was checked at [facility] for COVID 19 and was negative. Hospital Course: The patient was admitted for further evaluation/treatment. He was treated with IV Zosyn due to concern for sepsis and possible cholangitis. On admission, his total bilirubin: 6.9, direct bilirubin: 5.4. Elevated LFTs (AST: 117, ALT: 175, alkaline phosphatase: 154). GI was consulted, and patient underwent MRCP which was normal. Over the course of his hospitalization his bilirubin improved down to 2.0 and mild improvement of his LFTs. He is COVID test, flu swab, blood and urine cultures were all negative. After discussion with GI, was felt the patient may have had an acute viral syndrome that led to these abnormalities. On day of discharge, patient was without any nausea/vomiting/diarrhea, no abdominal pain, and tolerating a GI soft diet. Patient will be discharged home with 7 days of Levaquin and to follow up with GI in the next few weeks. On day of discharge, patient had pending hepatitis panel and other serologies that were sent out. Vital Signs/Physical Exam: Temp Pulse Resp BP Pulse Ox 97.2 F 60 18 110/67 98 10/27/20 12:05 08/25/20 12:05 08/25/20 12:05 08/25/20 12:05 08/25/20 12:05 General: Alert, In no apparent distress HEENT: Mucous membr. moist/pink, Sclerae nonicteric Neck: Supple Respiratory: Clear to auscultation bilaterally, Normal air movement Cardiovascular: No edema, Regular rate/rhythm, Normal S1 S2 Gastrointestinal: Soft and benign, Non-distended, No tenderness Musculoskeletal: No tenderness Integumentary: No rashes Neurological: Normal speech, Normal affect Laboratory Data at Discharge: WBC 5.2 K/uL (4.3-10.9) 08/25/20 04:13 Hgb 11.6 g/dL (13.6-17.9) L 08/25/20 04:13 Hct 33.6 % (39.6-49.0) L 08/25/20 04:13 Plt Count 166 K/uL (152-406) D 08/25/20 04:13 PT 12.1 SECONDS (9.5-12.5) 08/24/20 09:59 INR 1.03 08/24/20 09:59 APTT 36.5 SECONDS (24.3-36.9) 08/22/20 23:15 Sodium 141 mmol/L (136-145) 08/25/20 00:12 Potassium 4.0 mmol/L (3.5-5.1) 08/25/20 00:12 BUN 12 mg/dL (7-18) 08/25/20 00:12 Creatinine 0.98 mg/dL (0.55-1.3) 08/25/20 00:12 Glucose 92 mg/dL (74-106) 08/25/20 00:12 Total Bilirubin 2.0 mg/dL (0.2-1.0) H 08/25/20 00:12 AST 90 U/L (15-37) H 08/25/20 00:12 ALT 161 U/L (12-78) H 08/25/20 00:12 Alkaline Phosphatase 120 U/L (45-117) H 08/25/20 00:12 Lipase 144 U/L (73-393) 08/22/20 21:45 Home Medications: levoFLOXacin [Levaquin] 750 mg PO DAILY 7 Days #7 tab 08/25/20 New Medications: levoFLOXacin [Levaquin] 750 mg PO DAILY 7 Days #7 tab Patient Discharge Instructions: Follow up with PCP within 1 week. Follow up with Dr. Carrillo (GI) within 1-2 weeks - will review labwork. Medications: New: Levaquin (Levofloxacin) take 1 tablet once a day for 7 days Diet: Regular Activity: Ad shakeel Followup: Prince Susan Clark MD [Primary Care Provider] - Giovanni Thompson MD [ACTIVE - CAN ADMIT] - Time spent managing pt's care (in minutes): 40
[2020-08-26 15:47] LABS: HIV AG/AB 4TH GEN Non-reactive (Non-reactive)
== END 2020-08-25 14:36 | disposition home or self-care (01) | DRG 871 ==
LOC: ER 21:28 → 2ND 08-23 02:43
PROVIDERS: ADMIT Internal Medicine; ATTEND Hospitalist
DX: A41.89 Other specified sepsis (principal); K83.1 Obstruction of bile duct; N39.0 Urinary tract infection, site not specified; K83.09 Other cholangitis; A09 Infectious gastroenteritis and colitis, unspecified; N12 Tubulo-interstitial nephritis, not specified as acute or chronic; B34.9 Viral infection, unspecified; K76.0 Fatty (change of) liver, not elsewhere classified; E80.6 Other disorders of bilirubin metabolism; R74.01 Elevation of levels of liver transaminase levels; R65.20 Severe sepsis without septic shock; Z20.828 Contact with and (suspected) exposure to other viral communicable diseases
CPT/HCPCS: 36415; 71045; 74177; 74181; 76705; 80048; 80053; 80074; 80076; 80320; 80329; 81003; 81015; 82103; 82140; 82390; 82728; 82977; 83540; 83605; 83690; 84466; 85025; 85610; 85730; 86038; 86255; 86308; 87040; 87070; 87081; 87086; 87088; 87389; 87804; 96361; 96365; 96375; 99285; J2405; J2543; J7030; Q9967; U0003

== ENCOUNTER 2021-06-08 06:26 | Emergency (ER) | payer SELFPAY ==
[2021-06-08] MEDS ORDERED: MAGNES/ALUMIN/SIMET 30ML UCUP ONE (07:00)
[2021-06-08] MEDS ORDERED: LIDOCAINE VISCOUS 2% SOLN 15 ML UDC ONE (07:00)
--- NOTE | 2021-06-08 07:25 | EDPHYS ---
Physician Documentation [facility] Name: Carmelo Ruiz Age: 30 yrs Sex: Male : 1990 Arrival Date: 06/08/2021 Time: 06:27 Bed Waiting Private MD: ED Physician Yamil Kelly HPI: 06/08 07:25 This 30 yrs old Male presents to ER via Ambulatory with complaints of kb Epigastric Pain - BAD HEARTBURN, CAUSING HIM TO VOMIT. 06:36 The patient presents with abdominal pain in the epigastric area, in the upper abdomen. kb Onset: The symptoms/episode began/occurred yesterday. The symptoms radiate to "up to throat". Associated signs and symptoms: Pertinent positives: vomiting, Pertinent negatives: chest pain, fever. The symptoms are described as burning. Modifying factors: The symptoms are alleviated by nothing, the symptoms are aggravated by nothing. Severity of pain: At its worst the pain was moderate in the emergency department the pain is unchanged. The patient has experienced similar episodes in the past, chronically. The patient has not recently seen a physician. Pt reports he started having "bad heartburn" yesterday after eating. States he has always had bad heartburn, but it seems to be getting worse. Takes prilosec daily and took tums last night with no relief. Reports the burning starts in upper abd and radiates to throat. reports vomiting. Has appt scheduled for Monday, but called into work today and was told he had to be seen today or he had to stay out for a 14 day quarantine. . Historical: - Allergies: 06:42 No Known Allergies; bb - Home Meds: 06:42 Prilosec Oral [Active]; bb - PMHx: 06:42 GERD; bb - PSHx: 06:42 None; bb - Immunization history:: Adult Immunizations up to date, Client reports having NOT received the Covid vaccine. - Social history:: Smoking status: Patient reports the use of cigarette tobacco products, cigars. ROS: 06:39 Constitutional: Negative for fever, chills, and weight loss. kb 06:39 Abdomen/GI: Positive for vomiting, upper abd burning. 06:39 All other systems are negative. Exam: 06:39 Constitutional: This is a well developed, well nourished patient who is awake, alert, kb and in no acute distress. Head/Face: Normocephalic, atraumatic. ENT: Moist Mucous membranes Cardiovascular: Regular rate and rhythm with a normal S1 and S2. No gallops, murmurs, or rubs. No pulse deficits. Respiratory: Respirations even and unlabored. No increased work of breathing, no retractions or nasal flaring. Abdomen/GI: Soft, non-tender. No distention Skin: Warm, dry with normal turgor. Normal color. MS/ Extremity: Pulses equal, no cyanosis. Neurovascular intact. Full, normal range of motion. Neuro: Awake and alert, GCS 15, oriented to person, place, time, and situation. Moves all extremities. Normal gait. Psych: Awake, alert, with orientation to person, place and time. Behavior, mood, and affect are within normal limits. 07:19 ECG was reviewed by the Attending Physician. kb Vital Signs: 06:40 BP 139 / 87; Pulse 70; Resp 16 S; Temp 96.9(TE); Pulse Ox 98% on R/A; Weight 99.79 kg bb (R); Height 6 ft. 0 in. (182.88 cm) (R); Pain 7/10; 06:40 Body Mass Index 29.84 (99.79 kg, 182.88 cm) bb MDM: 06:36 Patient medically screened. kb 06:40 Data reviewed: vital signs, nurses notes. Data interpreted: Pulse oximetry: on room air kb is 98 %. Interpretation: normal. 07:23 Counseling: I had a detailed discussion with the patient and/or guardian regarding: the kb historical points, exam findings, and any diagnostic results supporting the discharge/admit diagnosis, the need for outpatient follow up, a family practitioner, a senior sales engineer, to return to the emergency department if symptoms worsen or persist or if there are any questions or concerns that arise at home. Response to treatment: the patient's symptoms have resolved after treatment. 07:23 ED course: Burning pain/heartburn resolved after treatment. Pt laughing while talking kb on cell phone. No distress. No obvious distress. No abd pain or tenderness upon exam. Pt will follow up with PCP on Monday. 06/08 06:36 Order name: EKG; Complete Time: 06:36 kb 06/08 06:36 Order name: EKG - Nurse/Tech; Complete Time: 06:45 kb EC:19 Rate is 56 beats/min. Rhythm is regular. QRS [place] is Normal. MA interval is normal at kb 148 msec. QRS interval is normal at 74 msec. QT interval is normal at 372 msec. Administered Medications: 06:45 Drug: GI Cocktail without - (Maalox Suspension 30 ml, Lidocaine Liquid 2 % 15 bb ml) Route: PO; 07:21 Follow up: Response: Marked relief of symptoms bb Disposition: 10:33 Co-signature as Attending Physician, Yamil Kelly MD I agree with the assessment and rn plan of care. Attestation: The patient's history, exam findings, diagnostics, and a summary of any interventions or procedures was reviewed in detail with Vita MAURO. Disposition Summary: 06/08/21 07:24 Discharge Ordered Location: Home kb Condition: Stable kb Diagnosis - Gastro-esophageal reflux disease without esophagitis kb Followup: kb - With: Emergency Department - When: As needed - Reason: Worsening of condition Followup: kb - With: Private Physician - When: 2 - 3 days - Reason: Recheck today's complaints, Continuance of care, Re-evaluation by your physician Discharge Instructions: - Discharge Summary Sheet kb - Food Choices for Gastroesophageal Reflux Disease, Adult kb - Gastroesophageal Reflux Disease, Adult, [id number] kb Forms: - Medication Reconciliation Form kb - Work release form kb - Thank You Letter kb - Antibiotic Education kb - Prescription Opioid Use kb Prescriptions: - Protonix 40 mg Oral Tablet - take 1 tablet by ORAL route once daily; 30 tablet; Refills: 0, Product kb Selection Permitted Signatures: Vita Faustin FNP-C FNP-Ckb Ballard, Brenda, RN RN Yamil Clemente MD MD rn
--- NOTE | 2021-06-08 07:25 | ER ---
Nurse's Notes [facility] Name: Carmelo Ruiz Age: 30 yrs Sex: Male : 1990 Arrival Date: 06/08/2021 Time: 06:27 Bed Waiting Private MD: Diagnosis: Gastro-esophageal reflux disease without esophagitis Presentation: 06/08 06:40 Chief complaint: Patient states: he had heartburn after eating yesterday causing bb vomiting "burning from upper abdomen to throat". Coronavirus screen: At this time, the client does not indicate any symptoms associated with coronavirus-19. Ebola Screen: No symptoms or risks identified at this time. Initial Sepsis Screen: Does the patient meet any 2 criteria? No. Patient's initial sepsis screen is negative. Does the patient have a suspected source of infection? No. Patient's initial sepsis screen is negative. Risk Assessment: Do you want to hurt yourself or someone else? Patient reports no desire to harm self or others. Onset of symptoms was June 07, 2021. 06:40 Method Of Arrival: Ambulatory 06:40 Acuity: HANSEL 3 bb Triage Assessment: 06:42 General: Appears in no apparent distress. Behavior is calm, cooperative. Pain: bb Complains of pain in chest Pain currently is 7 out of 10 on a pain scale. Neuro: Level of Consciousness is awake, alert, obeys commands, Oriented to person, place, time, situation. Cardiovascular: Capillary refill < 3 seconds Patient's skin is warm and dry. Rhythm is sinus bradycardia. Respiratory: Airway is patent Respiratory effort is even, unlabored, Respiratory pattern is regular. GI: Reports epigastric pain, indigestion. Derm: Skin is pink, warm \\T\\ dry. Musculoskeletal: Circulation, motion, and sensation intact. Historical: - Allergies: 06:42 No Known Allergies; bb - Home Meds: 06:42 Prilosec Oral [Active]; bb - PMHx: 06:42 GERD; bb - PSHx: 06:42 None; bb - Immunization history:: Adult Immunizations up to date, Client reports having NOT received the Covid vaccine. - Social history:: Smoking status: Patient reports the use of cigarette tobacco products, cigars. Screenin:30 Abuse screen: Denies threats or abuse. Nutritional screening: No deficits noted. bb Tuberculosis screening: No symptoms or risk factors identified. Fall Risk None identified. Assessment: 07:30 Reassessment: No changes from previously documented assessment. Patient is alert, bb oriented x 3, equal unlabored respirations, skin warm/dry/pink. pt discharged from triage pt verbalized understanding of and agrees to plan of care discharge instructions given pt ambulated with steady gait to exit. Vital Signs: 06:40 BP 139 / 87; Pulse 70; Resp 16 S; Temp 96.9(TE); Pulse Ox 98% on R/A; Weight 99.79 kg bb (R); Height 6 ft. 0 in. (182.88 cm) (R); Pain 7/10; 06:40 Body Mass Index 29.84 (99.79 kg, 182.88 cm) bb ED Course: 06:27 Patient arrived in ED. wm 06:35 Vita Faustin [facility]C [facility]. kb 06:36 Branden Wong MD is Attending Physician. kb 06:42 Triage completed. bb 06:42 Arm band placed on Patient placed in waiting room, Patient notified of wait time. EKG bb completed in triage. Results shown to MD. 07:25 Attending Physician role handed off by Branden Wong MD rn 07:25 Yamil Kelly MD is Attending Physician. rn 07:30 Patient has correct armband on for positive identification. bb 07:30 No provider procedures requiring assistance completed. Patient did not have IV access bb during this emergency room visit. Administered Medications: 06:45 Drug: GI Cocktail without - (Maalox Suspension 30 ml, Lidocaine Liquid 2 % 15 bb ml) Route: PO; 07:21 Follow up: Response: Marked relief of symptoms bb Outcome: 07:24 Discharge ordered by . kb 07:30 Discharged to home ambulatory. bb 07:30 Condition: stable 07:30 Discharge instructions given to patient, Instructed on discharge instructions, follow up and referral plans. medication usage, Demonstrated understanding of instructions, follow-up care, medications, Prescriptions given X 1. 07:32 Patient left the ED. bb Signatures: Vita Faustin FNP-C FNP-Ckb Ballard, Brenda, RN RN bb Nieto, Roman, MD MD rn Marsh, Wendy
[2021-06-08 07:37] VITALS: BP 139/87; TEMP 96.9; O2SAT 98
--- NOTE | 2021-06-09 07:33 | EKG ---
Test Date: 2021-06-08 Test Time: 06:44:04 [employer] Machine: SIVAN MEASUREMENT RESULTS: Intervals: Rate: 56 WI: 148 QRSD: 74 QT: 372 QTc: 358 [place]: P: 31 WI: 148 QRS: 57 T: 46 INTERPRETIVE STATEMENTS: Sinus bradycardia with sinus arrhythmia Early repolarization Otherwise normal ECG No previous ECG available for comparison Electronically Signed On 06-09-21 07:31:15 CDT by Jah Morrell
== END 2021-06-08 07:32 | disposition home or self-care (01) ==
LOC: ER 06:26
DX: K21.9 Gastro-esophageal reflux disease without esophagitis (principal); F17.290 Nicotine dependence, other tobacco product, uncomplicated
CPT/HCPCS: 93005; 99284